=== PATIENT | female | born 1960 | race Caucasian/White ===

== ENCOUNTER 2018-12-01 08:06 | Day surgery (SDC) | payer MEDICAID ==
[~2018-12-01] VITALS: Ht 162.6 cm; Wt 46.5 kg
[2018-12-01] MEDS ORDERED: IBUP-1223 PO (08:49)
[2018-12-01] MEDS ORDERED: CODE1CAP9 PO (08:49)
[2018-12-01] MEDS ORDERED: ASPI-650 PO (08:49)
[2018-12-01] MEDS ORDERED: HYDR-3240 PO (08:49)
[2018-12-01] MEDS ORDERED: ALPR-475 PO (08:49)
[2018-12-01] MEDS ORDERED: CYCL-259 PO (08:49)
[2018-12-01] MEDS ORDERED: LACTATED RINGERS 1,000 ML IV SCH (08:50)
[2018-12-01] MEDS ORDERED: LIDOCAINE-MPF 1%, 2ML INFIL ONE (09:00)
[2018-12-01 09:15] VITALS: BP 141/96
[2018-12-01] MEDS ORDERED: FENTANYL PF 100 MCG/2ML ONE (09:55)
[2018-12-01] MEDS ORDERED: PROPOFOL 10 MG/ML, 20ML ONE (10:19)
[2018-12-01] MEDS ORDERED: ONDANSETRON 2MG/ML, 2ML ONE (10:19)
[2018-12-01] MEDS ORDERED: LIDOCAINE-MPF 2% ,5ML ONE (10:19)
[2018-12-01] MEDS ORDERED: DEXAMETHASONE 4 MG/ML, 1ML ONE (10:19)
[2018-12-01] MEDS ORDERED: CEFAZOLIN 1,000 MG ONE (10:19)
[2018-12-01] MEDS ORDERED: DIPHENHYDRAMINE 50 MG/ML, 1ML IVPush PRN (11:00)
[2018-12-01] MEDS ORDERED: METOPROLOL 1 MG/ML, 5ML IV PRN (11:00)
[2018-12-01] MEDS ORDERED: hydrALAzine 20 MG/ML, 1ML IV PRN (11:00)
[2018-12-01] MEDS ORDERED: FENTANYL PF 100 MCG/2ML IV PRN (11:00)
[2018-12-01] MEDS ORDERED: LABETALOL 5MG/ML, 20ML IV PRN (11:00)
[2018-12-01] MEDS ORDERED: ACETAMINOPHEN 325 MG TABLET PO PRN (11:00)
[2018-12-01] MEDS ORDERED: HYDROcodone/APAP 5/325 TABLET PO ONE (13:00)
== END 2018-12-01 14:40 | disposition home or self-care (01) ==
LOC: OUT 08:06
PROVIDERS: ATTEND Internal Medicine Geriatric Medicine
DX: R13.10 Dysphagia, unspecified (principal); F41.9 Anxiety disorder, unspecified; Z98.890 Other specified postprocedural states; Z88.8 Allergy status to other drugs, medicaments and biological substances; Z86.718 Personal history of other venous thrombosis and embolism
CPT/HCPCS: 43246; B4087; J0690; J1100; J2405; J2704; J3010; J3490

== ENCOUNTER 2019-01-27 14:16 | Outpatient (CLI) | payer MEDICAID ==
[~2019-01-27 14:16] MED LIST: ALPR-475 PO; ASPI-650 PO; CODE1CAP9 PO; CYCL-259 PO; HYDR-3240 PO; IBUP-1223 PO
== END 2019-01-27 23:59 | disposition home or self-care (01) ==
LOC: CARD 14:16
PROVIDERS: ATTEND Psychiatry & Neurology Neurology
DX: G12.21 Amyotrophic lateral sclerosis (principal)
CPT/HCPCS: 94010; 94060

== ENCOUNTER 2020-06-15 23:29 | Inpatient (IN) | payer MEDICAID, MEDICARE ==
[~2020-06-15] VITALS: Ht 162.6 cm; Wt 55.6 kg
[~2020-06-15 23:29] MED LIST changes: -ALPR-475 PO; +ALPR0.5T7 PO
[2020-06-16] MEDS ORDERED: SODIUM CHLORIDE 0.9% 1,000ML IVBOLUS ONE
--- NOTE | 2020-06-16 | NUR ---
THIS IS 59Y F BIB EMS FROM HOME, PT REPORTS NAUSEA AT HOME TODAY, AND INC SOB. RA SAT MID 80'S. NOW 92% ON 5L NC PT HAS ALS AND COMMUNICATES ON A CELL PHONE WITH TEXTING. PT HAS FEEDING TUBE IN PLACE. HR TACHY ERP AWARE. SISTER AT BEDSIDE NOW
--- NOTE | 2020-06-16 00:04 | NUR ---
UNABLE TO COMPLETE STRAIGHT CATH PT IS UNABLE TO BE REPOSITIONED OR LAY FLAT. ERP AWARE
[2020-06-16] MEDS ORDERED: DIAZEPAM 5 MG/ML, 2ML ONE ×2 (00:20→01:33)
[2020-06-16] MEDS ORDERED: DIAZEPAM 5 MG/ML, 2ML IVPush ONE ×2 (00:30→01:30)
[2020-06-16 00:51] LABS: BASOPHILS # (AUTO) 0.01 x10^3/uL (0-0.1); BASOPHILS % (AUTO) 0 % (0-1); EOSINOPHILS # (AUTO) 0.03 x10^3/uL (0-0.4); EOSINOPHILS % (AUTO) 0 % (1-7); LYMPHOCYTES # (AUTO) 0.82 x10^3/uL (1-3.4); LYMPHOCYTES % (AUTO) 7 % (22-44); MD NO; MEAN CORPUSCULAR HEMOGLOBIN 32.6 pg (27.0-34.8); MEAN CORPUSCULAR HGB CONC 33.2 g/dL (32.4-35.8); MEAN PLATELET VOLUME 10.2 fL (7.4-10.4); MONOCYTES # (AUTO) 0.35 x10^3/uL (0.2-0.8); MONOCYTES % (AUTO) 3 % (2-9); NEUTROPHILS % (AUTO) 90 % (42-75); PLATELET COUNT 197 x10^3/uL (130-400); RED CELL DISTRIBUTION WIDTH 13.1 % (9.6-15.2)
[2020-06-16 01:04] LABS: ALANINE AMINOTRANSFERASE 39 U/L (12-78); ALBUMIN 3.9 g/dL (3.4-5.0); ANION GAP 7 mmol/L (5-15); CALCIUM 8.9 mg/dL (8.5-10.1); CHLORIDE 101 mmol/L (98-107); CREATININE 0.53 mg/dL (0.55-1.02)
[2020-06-16 01:08] LABS: ALKALINE PHOSPHATASE 119 U/L (45-117); BILIRUBIN,TOTAL 0.5 mg/dL (0.2-1.0); TOTAL PROTEIN 7.7 g/dL (6.4-8.2)
[2020-06-16 01:09] LABS: TROPONIN I 0.202 ng/mL (0.000-0.045)
--- NOTE | 2020-06-16 01:47 | NUR ---
BREAK RN: PATIENT MEDICATED PER EMAR. PLACED ON OXYMASK AT 7LPM DUE TO SPO2 AT 85% WITH 6LPM ON NASAL CANNULA. PATIENT BREATHING THROUGH MOUTH AND NOT MAINTAINING OXYGENATION WITH NASAL CANNULA.
[2020-06-16 01:56] LABS: INTERNATIONAL NORMALIZED RATIO 1.03 (0.93-1.1); PROTHROMBIN TIME 10.9 Seconds (9.6-11.5)
[2020-06-16] MEDS ORDERED: HEPARIN 25,000 UNITS/250ML PMX 250 ML ONE (01:59)
[2020-06-16] MEDS ORDERED: HEPARIN 5,000 UNITS/ML, 1ML ONE (01:59)
[2020-06-16] MEDS ORDERED: HEPARIN 5,000 UNITS/ML, 1ML IV ONE (02:00)
[2020-06-16] MEDS ORDERED: HEPARIN 25,000 UNITS/250ML PMX 250 ML IV PRN (02:00)
--- NOTE | 2020-06-16 02:29 | NUR ---
REPORT TO [facility]ARR[facility] PT READY FOR TRANSPORT TO [facility]. PER MEDICAL I D SALES UPSTAIRS SISTER TO ACCOMPANY PT TO ASSIST WITH CARE AND COMMUNICATION
--- NOTE | 2020-06-16 02:43 | NUR ---
DR. GUZMAN AT BEDSIDE FOR ASSESSMENT AT THIS TIME
[2020-06-16 04:14] VITALS: BP 150/99
[2020-06-16] MEDS ORDERED: morphine SULFATE 10 MG/ML, 1ML IVPush PRN (04:30)
[2020-06-16] MEDS ORDERED: LABETALOL 5MG/ML, 20ML IVPush PRN (04:30)
[2020-06-16] MEDS ORDERED: HEPARIN 5,000 UNITS/ML, 1ML IV PRN (04:30)
[2020-06-16] MEDS: ONDANSETRON 2MG/ML, 2ML IVPush PRN ×2 (04:35→16:31)
[2020-06-16] MEDS: CEFTRIAXONE PMX 1GM/50ML 50 ML IV SCH (06:56)
[2020-06-16] MEDS: AZITHROMYCIN 500 MG in SODIUM CHLORIDE 0.9% 250 ML IV SCH (08:01)
--- NOTE | 2020-06-16 09:13 | NUR ---
TUBE-FEEDING GOAL: OSMOLITE 1.2 AT 70ML/HOUR WITH 120ML FLUSH Q4HR Addendum: 06/16/20 at [address] NEIDA GUALLPA
[2020-06-16 09:51] VITALS: BP 132/87
[2020-06-16] MEDS: METOCLOPRAMIDE 5 MG/ML, 2ML IVPush PRN (12:52)
[2020-06-16] MEDS: LACTATED RINGERS 1,000 ML IV SCH (12:54)
--- NOTE | 2020-06-16 13:17 | NUR ---
REVISED TUBE-FEEDING GOAL: OSMOLITE 1.2 GOAL 60ML/HOUR W/120ML FLUSH Q4HR
[2020-06-16 13:34] LABS: MICROSCOPIC AUTO
[2020-06-16 15:32] VITALS: BP 142/90
[2020-06-16 20:17] VITALS: BP 143/89
[2020-06-16] MEDS: METOCLOPRAMIDE 5 MG/ML, 2ML IVPush SCH (20:45)
[2020-06-16] MEDS ORDERED: TRAZODONE 100MG TABLET PO PRN (22:00)
[2020-06-16] MEDS ORDERED: HYDROcodone/CHLORPHENIR ORAL SUSP PO PRN (22:00)
[2020-06-17 01:29] VITALS: BP 139/66
[2020-06-17] MEDS: LACTATED RINGERS 1,000 ML IV SCH (02:36)
[2020-06-17] MEDS: METOCLOPRAMIDE 5 MG/ML, 2ML IVPush PRN (03:00)
[2020-06-17 03:02] VITALS: BP 109/74
[2020-06-17] MEDS: CEFTRIAXONE PMX 1GM/50ML 50 ML IV SCH (05:40)
[2020-06-17 05:57] LABS: MEAN CORPUSCULAR HEMOGLOBIN 32.5 pg (27.0-34.8); MEAN CORPUSCULAR HGB CONC 32.5 g/dL (32.4-35.8); MEAN PLATELET VOLUME 10.3 fL (7.4-10.4); PLATELET COUNT 173 x10^3/uL (130-400); RED BLOOD COUNT 4.64 x10^6/uL (3.82-5.3); RED CELL DISTRIBUTION WIDTH 13.4 % (9.6-15.2)
[2020-06-17 05:58] LABS: ANION GAP 2 mmol/L (5-15); CALCIUM 8.8 mg/dL (8.5-10.1); CHLORIDE 107 mmol/L (98-107)
[2020-06-17 06:00] LABS: CREATININE 0.41 mg/dL (0.55-1.02)
[2020-06-17] MEDS: AZITHROMYCIN 500 MG in SODIUM CHLORIDE 0.9% 250 ML IV SCH (06:37)
[2020-06-17 07:23] LABS: MD SCAN
[2020-06-17 07:24] LABS: BASOPHILS # (AUTO) 0.01 x10^3/uL (0-0.1); BASOPHILS % (AUTO) 0 % (0-1); EOSINOPHILS % (AUTO) 0 % (1-7); LYMPHOCYTES # (AUTO) 0.84 x10^3/uL (1-3.4); LYMPHOCYTES % (AUTO) 5 % (22-44); MONOCYTES # (AUTO) 0.68 x10^3/uL (0.2-0.8); MONOCYTES % (AUTO) 4 % (2-9); NEUTROPHILS # (AUTO) 17.25 x10^3/uL (1.8-6.8); NEUTROPHILS % (AUTO) 92 % (42-75)
[2020-06-17] MEDS: METOCLOPRAMIDE 5 MG/ML, 2ML IVPush SCH (08:04)
[2020-06-17 08:39] VITALS: BP 132/85
[2020-06-17] MEDS ORDERED: SCOPOLAMINE 1MG PATCH TD PRN (09:00)
[2020-06-17] MEDS ORDERED: SENNOSIDES 8.6 MG TABLET PO SCH (09:00)
[2020-06-17] MEDS ORDERED: ESCITALOPRAM 10MG TABLET PO SCH (09:00)
[2020-06-17] MEDS ORDERED: GLYCOPYRROLATE 1 MG TABLET PO SCH (09:00)
[2020-06-17] MEDS ORDERED: SODIUM CHLORIDE FLUSH 10ML SYR IVF SCH (09:00)
[2020-06-17] MEDS ORDERED: ONDANSETRON 2MG/ML, 2ML IVPush PRN (09:00)
[2020-06-17] MEDS ORDERED: MORPHINE 30MG/30ML PCA.SYR IV PRN (09:00)
[2020-06-17] MEDS ORDERED: ATROPINE OPHTH SOLN 1%, 5ML PO PRN (09:00)
[2020-06-17] MEDS ORDERED: DOCUSATE 100 MG CAPSULE PO SCH (09:00)
[2020-06-17] MEDS: LORazepam 2 MG/ML, 1ML IVPush PRN ×2 (10:21→13:34)
== END 2020-06-17 15:18 | disposition expired | DRG 871 ==
LOC: ED 06-16 00:06 → EDIP 06-16 02:02 → 5SO 06-16 02:34
PROVIDERS: ADMIT Family Medicine; ATTEND Hospitalist
DX: A41.9 Sepsis, unspecified organism (principal); J96.21 Acute and chronic respiratory failure with hypoxia; E43 Unspecified severe protein-calorie malnutrition; I21.09 ST elevation (STEMI) myocardial infarction involving other coronary artery of anterior wall; G12.21 Amyotrophic lateral sclerosis; F40.240 Claustrophobia; G43.909 Migraine, unspecified, not intractable, without status migrainosus; R13.10 Dysphagia, unspecified; R73.9 Hyperglycemia, unspecified; I27.20 Pulmonary hypertension, unspecified; Z66 Do not resuscitate; F41.1 Generalized anxiety disorder; Z51.5 Encounter for palliative care; Z53.20 Procedure and treatment not carried out because of patient's decision for unspecified reasons; Z93.1 Gastrostomy status; Z86.718 Personal history of other venous thrombosis and embolism; Z79.899 Other long term (current) drug therapy; Z68.21 Body mass index [BMI] 21.0-21.9, adult; Z88.8 Allergy status to other drugs, medicaments and biological substances
CPT/HCPCS: 36415; 36600; 71045; 80048; 80053; 81001; 82803; 83605; 83880; 84145; 84484; 85025; 85379; 85520; 85610; 87040; 93005; 93306; 93970; 96374; 99291; G0378; J0456; J0696; J1644; J2270; J2405; J3360; J2060; J2765; J7030; J7050; J7120